=== PATIENT | female | born 1985 | race Caucasian/White ===

== ENCOUNTER 2022-12-30 12:04 | Emergency (ER) | payer SELFPAY ==
[~2022-12-30] VITALS: Ht 157.5 cm; Wt 84.1 kg
[2022-12-30 14:27] LABS: BASO % 0.4 % (0.0-1.0); EOS # 0.1 10^3/uL (0.0-0.5); HEMOGLOBIN 13.3 g/dl (12.0-15.5); LYMPH # 1.4 10^3/uL (1.5-5.0); LYMPH % 21.4 % (24.0-44.0); MEAN CORPUSCULAR HEMOGLOBIN 31.1 pg (27.0-33.0); MEAN CORPUSCULAR HGB CONC 33.3 g/dl (32.0-36.5); MEAN CORPUSCULAR VOLUME 93.5 fl (80.0-96.0); MONO # 0.3 10^3/uL (0.0-0.8); MONO % 5.1 % (2.0-8.0); NEUTROPHILS # 4.8 10^3/uL (1.5-8.5); NEUTROPHILS % 71.8 % (36.0-66.0); PLATELET COUNT, AUTOMATED 215 10^3/uL (150-450); RED BLOOD COUNT 4.28 10^6/uL (4.00-5.40); WHITE BLOOD COUNT 6.7 10^3/uL (4.0-10.0)
[2022-12-30 15:20] VITALS: BP 159/85; TEMP 100.1; O2SAT 99
[2022-12-30 15:49] LABS: BLOOD UREA NITROGEN 10 MG/DL (9-23); CALCIUM LEVEL 8.2 MG/DL (8.5-10.1); CARBON DIOXIDE LEVEL 26 MMOL/L (20-31); CHLORIDE LEVEL 106 MMOL/L (98-107); CREATININE FOR GFR 0.58 MG/DL (0.55-1.30); GLOMERULAR FILTRATION RATE > 60.0 (>60); GLUCOSE, FASTING 95 MG/DL (60-100); POTASSIUM SERUM 4.2 MMOL/L (3.5-5.1); SODIUM LEVEL 139 MMOL/L (136-145)
== END 2022-12-30 15:22 | disposition home or self-care (01) ==
LOC: M ED 12:04
DX: O03.9 Complete or unspecified spontaneous abortion without complication (principal)

== ENCOUNTER 2023-05-09 21:29 | Emergency (ER) | payer SELFPAY ==
[2023-05-09 22:28] LABS: BASO % 0.4 % (0.0-1.0); EOS # 0.1 10^3/uL (0.0-0.5); HEMATOCRIT 36.5 % (36.0-47.0); HEMOGLOBIN 12.4 g/dl (12.0-15.5); LYMPH # 2.2 10^3/uL (1.5-5.0); LYMPH % 21.2 % (24.0-44.0); MEAN CORPUSCULAR HEMOGLOBIN 30.9 pg (27.0-33.0); MONO # 0.6 10^3/uL (0.0-0.8); MONO % 5.5 % (2.0-8.0); NEUTROPHILS # 7.4 10^3/uL (1.5-8.5); NEUTROPHILS % 71.6 % (36.0-66.0); PLATELET COUNT, AUTOMATED 217 10^3/uL (150-450); RED BLOOD COUNT 4.01 10^6/uL (4.00-5.40); WHITE BLOOD COUNT 10.3 10^3/uL (4.0-10.0)
[2023-05-09 23:00] LABS: BLOOD UREA NITROGEN 15 MG/DL (9-23); CALCIUM LEVEL 9.2 MG/DL (8.5-10.1); CARBON DIOXIDE LEVEL 29 MMOL/L (20-31); CHLORIDE LEVEL 101 MMOL/L (98-107); CREATININE FOR GFR 0.73 MG/DL (0.55-1.30); GLOMERULAR FILTRATION RATE > 60.0 (>60); GLUCOSE, FASTING 84 MG/DL (60-100); POTASSIUM SERUM 4.5 MMOL/L (3.5-5.1); SODIUM LEVEL 135 MMOL/L (136-145)
[2023-05-09 23:15] LABS: HCG, SERUM QUANTITATIVE 86874.9 MIU/ML (<4.2)
[2023-05-10 05:00] VITALS: BP 111/63; TEMP 97.6; O2SAT 98
== END 2023-05-10 05:30 | disposition home or self-care (01) ==
LOC: M ED 21:29
DX: O20.9 Hemorrhage in early pregnancy, unspecified (principal); Z3A.08 8 weeks gestation of pregnancy

== ENCOUNTER → 2023-06-20 | Outpatient (CLI) | payer SELFPAY ==
[2023-06-20 18:31] LABS: HEMATOCRIT 36.6 % (36.0-47.0); HEMOGLOBIN 12.3 g/dl (12.0-15.5); MEAN CORPUSCULAR HEMOGLOBIN 31.5 pg (27.0-33.0); MEAN CORPUSCULAR HGB CONC 33.6 g/dl (32.0-36.5); MEAN CORPUSCULAR VOLUME 93.8 fl (80.0-96.0); PLATELET COUNT, AUTOMATED 198 10^3/uL (150-450); WHITE BLOOD COUNT 8.5 10^3/uL (4.0-10.0)
[2023-06-20 19:43] LABS: HIV 1&2 SCREEN NEGATIVE (NEGATIVE)
[2023-06-20 19:51] LABS: HEPATITIS C VIRUS ABY INDEX < 0.02 INDEX (<0.8)
== END ==
LOC: M PLALAB 15:44
PROVIDERS: ATTEND Advanced Practice Midwife
DX: Z34.81 Encounter for supervision of other normal pregnancy, first trimester (principal); Z3A.00 Weeks of gestation of pregnancy not specified

== ENCOUNTER → 2023-07-18 | Outpatient (CLI) | payer SELFPAY | LOC: M PLALAB 12:16 | PROVIDERS: ATTEND Obstetrics & Gynecology | DX: O09.529 Supervision of elderly multigravida, unspecified trimester (principal); Z3A.00 Weeks of gestation of pregnancy not specified ==

== ENCOUNTER → 2023-07-18 | Outpatient (REF) | payer SELFPAY ==
[2023-07-18 15:21] LABS: GC DNA AMPLIFICATION NEGATIVE (NEGATIVE)
== END ==
LOC: M SFHCWAGY 13:16
PROVIDERS: ATTEND Advanced Practice Midwife
DX: Z34.81 Encounter for supervision of other normal pregnancy, first trimester (principal); O09.529 Supervision of elderly multigravida, unspecified trimester; Z12.4 Encounter for screening for malignant neoplasm of cervix; Z01.419 Encounter for gynecological examination (general) (routine) without abnormal findings; Z77.9 Other contact with and (suspected) exposures hazardous to health

== ENCOUNTER 2023-09-15 13:31 | Emergency (ER) | payer MEDICAID, OTHER ==
[~2023-09-15] VITALS: Ht 157.5 cm; Wt 95.5 kg
[2023-09-15] MEDS ORDERED: CITA10TA7 (13:52)
[2023-09-15] MEDS ORDERED: MULT-90 PO (13:53)
[2023-09-15 16:54] VITALS: BP 128/64; TEMP 97.7; O2SAT 97
== END 2023-09-15 17:08 | disposition home or self-care (01) ==
LOC: M ED 13:31
DX: O26.892 Other specified pregnancy related conditions, second trimester (principal); S83.92XA Sprain of unspecified site of left knee, initial encounter; X50.0XXA Overexertion from strenuous movement or load, initial encounter; F32.A Depression, unspecified; Z79.899 Other long term (current) drug therapy; Z88.1 Allergy status to other antibiotic agents; Z3A.26 26 weeks gestation of pregnancy; Y92.9 Unspecified place or not applicable; Y93.89 Activity, other specified; Y99.0 Civilian activity done for income or pay

== ENCOUNTER → 2023-09-20 | Outpatient (CLI) | payer OTHER ==
[~2023-09-20] MED LIST: CITA10TA7; MULT-90 PO
== END ==
LOC: M RAD 12:35
PROVIDERS: ATTEND Obstetrics & Gynecology
DX: O09.522 Supervision of elderly multigravida, second trimester (principal); Z3A.26 26 weeks gestation of pregnancy

== ENCOUNTER → 2023-10-12 | Outpatient (CLI) | payer OTHER | LOC: M SOG 07:55 | PROVIDERS: ATTEND Physician Assistant | DX: Z53.9 Procedure and treatment not carried out, unspecified reason (principal) ==

== ENCOUNTER 2023-11-18 12:56 | Outpatient (CLI) | payer OTHER, MEDICAID ==
[~2023-11-18] VITALS: Ht 157.5 cm; Wt 96.9 kg
[2023-11-18] MEDS ORDERED: ACET325C5 PO (13:14)
[2023-11-18] MEDS ORDERED: HOME MED LIST COMPLETE! XX SCH (13:15)
[2023-11-18 13:16] VITALS: BP 121/66
== END 2023-11-18 13:40 | disposition home or self-care (01) ==
LOC: M LDO 12:56
PROVIDERS: ATTEND Obstetrics & Gynecology
DX: O26.893 Other specified pregnancy related conditions, third trimester (principal); O09.523 Supervision of elderly multigravida, third trimester; O99.353 Diseases of the nervous system complicating pregnancy, third trimester; G56.00 Carpal tunnel syndrome, unspecified upper limb; Z3A.35 35 weeks gestation of pregnancy
CPT/HCPCS: 59025; 76815; G0463

== ENCOUNTER 2023-11-18 14:01 | Emergency (ER) | payer MEDICAID, OTHER ==
[~2023-11-18] VITALS: Ht 157.5 cm; Wt 96.9 kg
[~2023-11-18 14:01] MED LIST changes: +ACET325C5 PO
[2023-11-18 16:17] VITALS: BP 126/72; TEMP 97.8; O2SAT 99
== END 2023-11-18 16:20 | disposition home or self-care (01) ==
LOC: M ED 14:01
DX: O99.353 Diseases of the nervous system complicating pregnancy, third trimester (principal); G56.03 Carpal tunnel syndrome, bilateral upper limbs; F32.A Depression, unspecified; F41.9 Anxiety disorder, unspecified; Z88.1 Allergy status to other antibiotic agents; Z79.1 Long term (current) use of non-steroidal anti-inflammatories (NSAID); Z79.899 Other long term (current) drug therapy; Z3A.35 35 weeks gestation of pregnancy
CPT/HCPCS: 59025; 76815; 99283; G0463

== ENCOUNTER → 2023-11-28 | Outpatient (CLI) | payer OTHER ==
[2023-11-28 15:10] LABS: HEMATOCRIT 34.7 % (36.0-47.0); HEMOGLOBIN 11.4 g/dl (12.0-15.5); MEAN CORPUSCULAR HEMOGLOBIN 30.2 pg (27.0-33.0); MEAN CORPUSCULAR HGB CONC 32.9 g/dl (32.0-36.5); PLATELET COUNT, AUTOMATED 162 10^3/uL (150-450); RED BLOOD COUNT 3.77 10^6/uL (4.00-5.40); WHITE BLOOD COUNT 7.8 10^3/uL (4.0-10.0)
[2023-11-28 15:51] LABS: GLUCOSE CHALLENGE TEST 1 HOUR 150 MG/DL (LESS THAN 140)
[2023-11-28 16:19] LABS: HIV 1&2 SCREEN NEGATIVE (NEGATIVE)
[2023-11-28 16:27] LABS: HEPATITIS C VIRUS ABY INDEX 0.02 INDEX (<0.8)
[2023-11-28 16:41] LABS: GC DNA AMPLIFICATION NEGATIVE (NEGATIVE)
== END ==
LOC: M PLALAB 11:52
PROVIDERS: ATTEND Obstetrics & Gynecology
DX: O99.212 Obesity complicating pregnancy, second trimester (principal)

== ENCOUNTER → 2023-11-29 | Outpatient (REF) | payer MEDICAID, OTHER | LOC: M PLALAB 12:24 | PROVIDERS: ATTEND Obstetrics & Gynecology | DX: R73.09 Other abnormal glucose (principal) ==

== ENCOUNTER → 2023-12-11 | Outpatient (CLI) | payer OTHER | LOC: M RAD 13:30 | PROVIDERS: ATTEND Nurse Practitioner Family | DX: O24.419 Gestational diabetes mellitus in pregnancy, unspecified control (principal); Z3A.38 38 weeks gestation of pregnancy ==

== ENCOUNTER 2023-12-12 11:33 | Inpatient (IN) | payer OTHER ==
[2023-12-12] VITALS (10 sets, daily range): BP systolic 124–151; BP diastolic 65–90; O2SAT 96
[~2023-12-12] VITALS: Ht 157.5 cm; Wt 97.3 kg
[2023-12-12] MEDS ORDERED: HOME MED LIST COMPLETE! XX SCH (11:55)
[2023-12-12] MEDS ORDERED: OXYTOCIN DRIP 30 UNITS in IV 1 EA IV PRN ×3 (12:05)
[2023-12-12] MEDS ORDERED: OXYTOCIN INJ 10UNITS/ML 1ML VIAL IM PRN (12:05)
[2023-12-12] MEDS ORDERED: METHYLERGONOVINE MALEATE 0.2MG/ML 1ML VIAL IM PRN (12:05)
[2023-12-12] MEDS ORDERED: CARBOPROST TROMETHAMINE 250 MCG/ML AMP IM PRN (12:05)
[2023-12-12] MEDS ORDERED: TRANEXAMIC ACID INJection 1,000 MG in NS 100 ML IV PRN (12:05)
[2023-12-12] MEDS ORDERED: OXYTOCIN INJ 10UNITS/ML 1ML VIAL IV PRN (12:05)
[2023-12-12] MEDS ORDERED: LR 1,000 ML IV SCH (12:05)
[2023-12-12] MEDS ORDERED: LIDOCAINE 1% MDV 20ML VIAL INFIL PRN (12:05)
[2023-12-12] MEDS: miSOPROStol 50MCG 1/2 TABLET PO PRN (13:59)
[2023-12-12 14:08] LABS: HEMATOCRIT 34.6 % (36.0-47.0); HEMOGLOBIN 11.5 g/dl (12.0-15.5); MEAN CORPUSCULAR HEMOGLOBIN 30.5 pg (27.0-33.0); MEAN CORPUSCULAR HGB CONC 33.2 g/dl (32.0-36.5); MEAN CORPUSCULAR VOLUME 91.8 fl (80.0-96.0); PLATELET COUNT, AUTOMATED 176 10^3/uL (150-450); RED BLOOD COUNT 3.77 10^6/uL (4.00-5.40); WHITE BLOOD COUNT 7.7 10^3/uL (4.0-10.0)
[2023-12-12 15:12] LABS: HEPATITIS C VIRUS ABY INDEX < 0.02 INDEX (<0.8)
[2023-12-12] MEDS ORDERED: INSULIN IV RATE CHANGE DOCUMENTATION ML/HR XX SCH (15:15)
[2023-12-12] MEDS ORDERED: D5W/0.9% SODIUM CHLORIDE 1,000 ML IV SCH (15:15)
[2023-12-12] MEDS ORDERED: NS 1,000 ML IV SCH (15:15)
[2023-12-12] MEDS ORDERED: INSULIN REGULAR IN 0.9 % NACL 100 UNIT in IV 1 EA IV SCH (15:15)
[2023-12-12] MEDS: OXYTOCIN DRIP 30 UNITS in IV 1 EA IV SCH (23:00)
[2023-12-12] MEDS: LACTATED RINGER'S 1000 ML IV STA (23:00)
[2023-12-12] MEDS ORDERED: EPIDURAL/PCA KEYS XX PRN (23:55)
[2023-12-12] MEDS ORDERED: NALOXONE INJ 0.4MG/1ML VIAL IV PRN (23:55)
[2023-12-12] MEDS ORDERED: LR 500 ML IV PRN (23:55)
[2023-12-12] MEDS ORDERED: ONDANSETRON 4MG 2ML VIAL IV PRN (23:55)
[2023-12-12] MEDS ORDERED: diphenhydrAMINE 50MG/ML VIAL IV PRN (23:55)
[2023-12-12] MEDS ORDERED: ePHEDrine SULFATE 25 MG/5 ML(5MG/ML) SYRINGE IVP PRN (23:55)
[2023-12-13] VITALS (32 sets, daily range): BP systolic 106–169; BP diastolic 55–99; O2SAT 99–100
[2023-12-13] MEDS: FENTANYL/ROPIVACAINE/NACL BAG 100 ML EPIDURAL SCH
[2023-12-13] MEDS: PRENATAL VITAMINS CHEWABLE TABLET PO SCH (09:00)
[2023-12-13 10:21] LABS: CORD GAS ABE A -10.3; CORD GAS HCO3 A 19.6 MMOL/L; CORD GAS O2 SAT A 22.4 %; CORD GAS PCO2 A 59.2 mmHg; CORD GAS PH A 7.137 UNITS; CORD GAS PO2 A 15.1 mmHg; CORD GAS SBC A 14.9 MMOL/L; CORD GAS TCO2 A 21.4 MMOL/L
[2023-12-13 10:22] LABS: CORD GAS ABE V -6.3; CORD GAS HCO3 V 21.9 MMOL/L; CORD GAS O2 SAT V 24.8 %; CORD GAS PCO2 V 53.6 mmHg; CORD GAS PH V 7.229 UNITS; CORD GAS PO2 V 14.6 mmHg; CORD GAS SBC V 17.7 MMOL/L; CORD GAS TCO2 V 23.5 MMOL/L
[2023-12-13] MEDS ORDERED: ACETAMINOPHEN 325 MG TAB PO PRN (10:30)
[2023-12-13] MEDS ORDERED: DIBUCAINE 1% OINTMENT 30GM TOP PRN (10:30)
[2023-12-13] MEDS ORDERED: IBUPROFEN 600MG TAB PO PRN (10:30)
[2023-12-13] MEDS ORDERED: RHOGAM 300MCG (1500IU) INJ IM SCH (10:30)
[2023-12-13] MEDS ORDERED: DOCUSATE SODIUM 100MG CAPSULE PO PRN (10:30)
[2023-12-13] MEDS ORDERED: METHYLERGONOVINE MALEATE 0.2 MG TAB PO PRN (10:30)
[2023-12-13] MEDS: ACETAMINOPHEN 500 MG TAB PO PRN (15:09)
[2023-12-14 06:00] VITALS: BP 136/81; O2SAT 97
[2023-12-14] MEDS ORDERED: ACET-683 PO (08:58)
[2023-12-14] MEDS ORDERED: IBUP80TA PO (08:58)
[2023-12-14] MEDS: IBUPROFEN 800 MG TAB PO PRN (11:29)
[2023-12-14] MEDS: FLUZONE VACCINE TRIVALENT PF(2024-25) 0.5ML SYRINGE IM.IMMUN ONE (17:44)
[2023-12-15] MEDS ORDERED: MEASLES,MUMPS,RUBELLA VACCINE INJ (MMR-II) SC.IMMUN ONE (09:00)
== END 2023-12-14 17:10 | disposition home or self-care (01) | DRG 560 ==
LOC: M LDI 11:33 → M OBS 12-13 12:25
PROVIDERS: ADMIT Obstetrics & Gynecology; ATTEND Obstetrics & Gynecology
PROC: 3E0P7VZ Introduction of Hormone into Female Reproductive, Via Natural or Artificial Opening (ICD-10-PCS; 2023-12-12)
PROC: 3E033VJ Introduction of Other Hormone into Peripheral Vein, Percutaneous Approach (ICD-10-PCS; 2023-12-12)
PROC: 10E0XZZ Delivery of Products of Conception, External Approach (ICD-10-PCS; principal; 2023-12-13)
DX: O24.419 Gestational diabetes mellitus in pregnancy, unspecified control (principal); O09.523 Supervision of elderly multigravida, third trimester; Z37.0 Single live birth; Z3A.38 38 weeks gestation of pregnancy

== ENCOUNTER 2024-02-24 16:02 | Emergency (ER) | payer OTHER ==
[~2024-02-24] VITALS: Ht 157.5 cm; Wt 92.1 kg
[~2024-02-24 16:02] MED LIST changes: +ACET-683 PO; +IBUP80TA PO
[2024-02-24] MEDS ORDERED: LARI1TAB3 (16:10)
[2024-02-24] MEDS ORDERED: IBUP200C28 PO (16:10)
[2024-02-24] MEDS ORDERED: APAP325T4 PO (16:10)
[2024-02-24] MEDS: KETOROLAC 60MG 2ML VIAL IM ONE (16:48)
[2024-02-24] MEDS: methocarbamoL 500 MG TAB PO ONE (16:48)
[2024-02-24] MEDS ORDERED: METH-1164 PO (17:24)
[2024-02-24 17:25] VITALS: BP 127/66; TEMP 98.7; O2SAT 100
[2024-02-26] MEDS ORDERED: METH-1164 PO (15:16)
== END 2024-02-24 17:30 | disposition home or self-care (01) ==
LOC: M ED 16:02
DX: M62.830 Muscle spasm of back (principal)
CPT/HCPCS: 96372; 99283; J1885

== ENCOUNTER 2024-04-01 11:57 | Emergency (ER) | payer OTHER ==
[~2024-04-01] VITALS: Ht 157.5 cm; Wt 90.8 kg
[~2024-04-01 11:57] MED LIST changes: +APAP325T4 PO; +IBUP200C28 PO; +LARI1TAB3; +METH-1164 PO
[2024-04-01 13:07] LABS: BASO % 0.2 % (0.0-1.0); EOS # 0.1 10^3/uL (0.0-0.5); EOS % 1.2 % (0.0-3.0); HEMATOCRIT 41.6 % (36.0-47.0); HEMOGLOBIN 13.9 g/dl (12.0-15.5); LYMPH # 0.9 10^3/uL (1.5-5.0); LYMPH % 9.9 % (24.0-44.0); MEAN CORPUSCULAR HGB CONC 33.4 g/dl (32.0-36.5); MEAN CORPUSCULAR VOLUME 89.7 fl (80.0-96.0); MONO # 0.2 10^3/uL (0.0-0.8); MONO % 2.3 % (2.0-8.0); NEUTROPHILS # 7.9 10^3/uL (1.5-8.5); NEUTROPHILS % 86.2 % (36.0-66.0); PLATELET COUNT, AUTOMATED 265 10^3/uL (150-450); RED BLOOD COUNT 4.64 10^6/uL (4.00-5.40); WHITE BLOOD COUNT 9.2 10^3/uL (4.0-10.0)
[2024-04-01 13:31] LABS: HCG, SERUM QUALITATIVE NEGATIVE (NEGATIVE); LIPASE 38 U/L (12-53)
[2024-04-01 13:34] LABS: ALBUMIN 3.4 G/DL (3.2-5.2); ALKALINE PHOSPHATASE 127 U/L (35-104); ALT/SGPT 115 U/L (7.0-40); AST/SGOT 38 U/L (<34); BILIRUBIN,DIRECT 0.2 MG/DL (<0.4); BILIRUBIN,TOTAL 0.6 MG/DL (0.3-1.2); BLOOD UREA NITROGEN 13 MG/DL (9-23); CALCIUM LEVEL 9.1 MG/DL (8.5-10.1); CARBON DIOXIDE LEVEL 26 MMOL/L (20-31); CHLORIDE LEVEL 101 MMOL/L (98-107); CREATININE FOR GFR 0.63 MG/DL (0.55-1.30); GLOMERULAR FILTRATION RATE > 60.0 (>60); GLUCOSE, FASTING 133 MG/DL (60-100); POTASSIUM SERUM 4.6 MMOL/L (3.5-5.1); SODIUM LEVEL 136 MMOL/L (136-145); TOTAL PROTEIN 7.5 G/DL (5.7-8.2)
[2024-04-01] MEDS: ONDANSETRON 4MG 2ML VIAL IV ONE (16:19)
[2024-04-01] MEDS: KETOROLAC 30 MG/ML 1ML VIAL IV ONE (16:19)
[2024-04-01] MEDS ORDERED: ISOVUE-370 76% 100ML VIAL As Ordered ONE (16:45)
[2024-04-01 17:40] VITALS: BP 136/72; TEMP 97.7; O2SAT 98
[2024-04-01] MEDS ORDERED: IBUP-1022 PO (19:20)
[2024-04-01] MEDS ORDERED: CIPR-249 PO (19:22)
[2024-04-01] MEDS ORDERED: METR-265 PO (19:22)
== END 2024-04-01 19:45 | disposition home or self-care (01) ==
LOC: M ED 11:57
DX: K80.00 Calculus of gallbladder with acute cholecystitis without obstruction (principal); G43.909 Migraine, unspecified, not intractable, without status migrainosus; Z79.2 Long term (current) use of antibiotics; Z79.1 Long term (current) use of non-steroidal anti-inflammatories (NSAID); Z79.899 Other long term (current) drug therapy
CPT/HCPCS: 74177; 80048; 80076; 83690; 84703; 85025; 87486; 87581; 87633; 87798; 96374; 99284; J1885; J2405; Q9967

== ENCOUNTER 2024-04-26 11:21 | Emergency (ER) | payer OTHER ==
[~2024-04-26] VITALS: Ht 157.5 cm; Wt 92.0 kg
[~2024-04-26 11:21] MED LIST changes: +CIPR-249 PO; -CITA10TA7; +CITA10TA7 PO; +IBUP-1022 PO; +METR-265 PO
[2024-04-26] MEDS ORDERED: CITA10TA7 PO (13:56)
[2024-04-26 14:22] VITALS: BP 122/64; TEMP 98; O2SAT 100
== END 2024-04-26 14:23 | disposition home or self-care (01) ==
LOC: M ED 11:21
DX: Z76.0 Encounter for issue of repeat prescription (principal); F32.A Depression, unspecified; Z88.1 Allergy status to other antibiotic agents; Z79.899 Other long term (current) drug therapy

== ENCOUNTER → 2024-04-30 | Outpatient (CLI) | payer OTHER | LOC: M EKG 14:45 | PROVIDERS: ATTEND Surgery | DX: K80.00 Calculus of gallbladder with acute cholecystitis without obstruction (principal) ==

== ENCOUNTER 2024-05-01 07:53 | Day surgery (SDC) | payer OTHER ==
[~2024-05-01] VITALS: Ht 157.5 cm; Wt 89.9 kg
[2024-05-01] MEDS: LR 1,000 ML IV SCH (09:09)
[2024-05-01] MEDS: CelecoXIB 400 MG CAP PO ONE (09:09)
[2024-05-01] MEDS ORDERED: ROCURONIUM BROMIDE 50MG/5ML VIAL As Ordered ONE (09:12)
[2024-05-01] MEDS ORDERED: propofoL 200 MG/20 ML VIAL As Ordered ONE (09:12)
[2024-05-01] MEDS ORDERED: MIDAZOLAM INJ 2MG/2ML VIAL As Ordered ONE (09:12)
[2024-05-01] MEDS ORDERED: LIDOCAINE 2% 100MG/5ML SDV (FOR ANES.) As Ordered ONE (09:12)
[2024-05-01] MEDS ORDERED: fentaNYL 100 MCG/2 ML INJECTION As Ordered ONE (09:12)
[2024-05-01] MEDS ORDERED: ONDANSETRON 4MG 2ML VIAL As Ordered ONE (09:12)
[2024-05-01] MEDS ORDERED: KETOROLAC 30 MG/ML 1ML VIAL As Ordered ONE (09:36)
[2024-05-01] MEDS: INDOCYANINE GREEN 25MG VIAL (IC-GREEN) IV ONE (09:44)
[2024-05-01] MEDS: LevoFLOXacin IV 500 MG in IV 1 EA IV ONE (09:44)
[2024-05-01] MEDS ORDERED: ACETAMINOPHEN 1000MG/100ML IV BAG As Ordered ONE (10:18)
[2024-05-01] MEDS: LIDOCAINE 1% SDV 30ML VIAL As Ordered ONE (10:27)
[2024-05-01] MEDS ORDERED: SUGAMMADEX SODIUM 500 MG/5 ML VIAL (BRIDION) As Ordered ONE (11:09)
[2024-05-01] MEDS: oxyCODONE 5MG TAB PO PRN (11:53)
[2024-05-01] MEDS: ONDANSETRON 4MG 2ML VIAL IV PRN (11:54)
[2024-05-01] MEDS: fentaNYL 100 MCG/2 ML INJECTION IV PRN (11:54)
[2024-05-01] MEDS: MORPHINE 2 MG/ML 1ML VIAL IV PRN (12:28)
[2024-05-01 13:50] VITALS: BP 117/62; TEMP 97.7; O2SAT 98
[2024-05-01] MEDS ORDERED: INDOCYANINE GREEN 25MG VIAL (IC-GREEN) As Ordered ONE (15:09)
[2024-05-01] MEDS ORDERED: dexmedeTOMIDine (4MCG/ML)200MCG/50ML BTL (PRECEDEX) As Ordered ONE (15:09)
== END 2024-05-01 14:06 | disposition home or self-care (01) ==
LOC: M SDC 07:53
PROVIDERS: ATTEND Surgery
DX: K80.20 Calculus of gallbladder without cholecystitis without obstruction (principal); F41.9 Anxiety disorder, unspecified; F32.A Depression, unspecified; Z79.899 Other long term (current) drug therapy; Z88.1 Allergy status to other antibiotic agents; N73.6 Female pelvic peritoneal adhesions (postinfective)
CPT/HCPCS: 47563; 64488; 81025; 88304; J0131; J0665; J1100; J1885; J1956; J2250; J2405; J3010; Q9968; S2900

== ENCOUNTER → 2024-08-02 | Outpatient (REF) | payer MEDICAID, OTHER ==
[~2024-08-02] MED LIST changes: -IBUP-1022 PO; +IBUP600T42 PO
[2024-08-06 14:34] LABS: HPV APTIMA Detected (Not Detected)
== END ==
LOC: M SFHCLERA 17:02
PROVIDERS: ATTEND Student in an Organized Health Care Education/Training Program
DX: Z12.4 Encounter for screening for malignant neoplasm of cervix (principal); R87.612 Low grade squamous intraepithelial lesion on cytologic smear of cervix (LGSIL)

== ENCOUNTER → 2024-09-10 | Outpatient (REF) ==
[~2024-09-10] MED LIST changes: +IBUP-1022 PO; -IBUP600T42 PO
== END ==
LOC: M LAB 09-09 14:37
PROVIDERS: ATTEND Family Medicine
DX: Z02.1 Encounter for pre-employment examination (principal)

== ENCOUNTER 2024-11-07 10:10 | Emergency (ER) | payer OTHER ==
[~2024-11-07] VITALS: Ht 157.5 cm; Wt 95.5 kg
[~2024-11-07 10:10] MED LIST changes: -IBUP-1022 PO; +IBUP600T42 PO
[2024-11-07 10:17] VITALS: TEMP 98
[2024-11-07] MEDS: IBUPROFEN 600 MG TAB PO ONE (12:05)
[2024-11-07 12:14] VITALS: BP 147/86; O2SAT 98
== END 2024-11-07 12:18 | disposition home or self-care (01) ==
LOC: M ED 10:10
DX: M25.561 Pain in right knee (principal); X50.0XXA Overexertion from strenuous movement or load, initial encounter; F17.200 Nicotine dependence, unspecified, uncomplicated; Z88.1 Allergy status to other antibiotic agents; Y92.89 Other specified places as the place of occurrence of the external cause; Y93.89 Activity, other specified; Y99.0 Civilian activity done for income or pay; Z79.1 Long term (current) use of non-steroidal anti-inflammatories (NSAID); Z79.899 Other long term (current) drug therapy